=== PATIENT | female | born 1950 | race Caucasian/White ===

== ENCOUNTER 2024-01-04 16:26 | Emergency (ER) | payer BC, OTHER ==
[~2024-01-04] VITALS: Ht 162.6 cm; Wt 105.9 kg
[2024-01-04] MEDS: HYDROcodone-ACET 5/325MG TAB PO ONE (19:10)
[2024-01-04] MEDS ORDERED: TRAM50TA2 PO (20:40)
[2024-01-04 21:31] VITALS: BP 150/57; PULSE 84; RESP 20; TEMP 98; O2SAT 98
== END 2024-01-04 21:31 | disposition home or self-care (01) ==
LOC: ER 16:26
DX: S93.502A Unspecified sprain of left great toe, initial encounter (principal); M19.072 Primary osteoarthritis, left ankle and foot; I10 Essential (primary) hypertension; Z88.2 Allergy status to sulfonamides; W18.39XA Other fall on same level, initial encounter; Y93.89 Activity, other specified; Y92.89 Other specified places as the place of occurrence of the external cause; Y99.8 Other external cause status
CPT/HCPCS: 73630